=== PATIENT | female | born 1955 | race Asian ===

== ENCOUNTER 2023-12-06 10:51 | Outpatient (CLI) | payer MEDICARE, OTHER, SELFPAY ==
--- NOTE | ~2023-12-06 | DEXA_ITS ---
Bone Density Report Name: ZAN DODSON Age: 68 Sex: Female Ethnicity: White Date of : 1955 Indication: postmenopausal; screening for osteoporosis; Referring Provider: SONIDO ABRAMS Study: Bone densitometry was performed. Exam Date: December 06, 2023 Accession number: [id number] Bone Density: Region BMD T-score Z-score Classification AP Spine(L1-L4) 1.035 -0.1 1.7 Normal Femoral Neck (Left) 0.857 0.1 1.6 Normal Total Hip (Left) 1.047 0.9 2.1 Normal Femoral Neck (Right) 0.779 -0.6 0.9 Normal Total Hip (Right) 0.977 0.3 1.6 Normal Total Hip Mean 1.012 0.6 1.9 Normal World Health Organization criteria for BMD impression classify patients as: Normal (T-score at or above -1.0), Osteopenia (T-score between -1.0 and -2.5), or Osteoporosis (T-score at or below -2.5). 10-year Fracture Risk: FRAX not reported because: All T-scores for Spine Total, Hip Total, Femoral Neck at or above -1.0 Clinical Information Provided by Patient: Patient maximum height was 61 Drinks caffeinated beverages Onset of menses at age 16 Number of children 2 Impression: The patient has normal bone mass. Discussion: BONE DENSITY IS ABOVE THE MINIMUM DESIRABLE LEVEL AT ALL SKELETAL SITES TESTED. This patient?s bone mineral density is above the minimum desirable level (T-score -1.0 or better) at all sites measured. The patient should follow a healthful lifestyle (good nutrition with adequate calcium and vitamin D, and appropriate weight-bearing exercise). Follow-Up: Consider repeating this study in 5 years or sooner if there is some new clinical indication. Reported by: DAWOOD on 12/06/2023 11:16:00 AM. Reviewed, dictated and finalized at location ASean RODRIGUEZ
== END 2023-12-06 10:52 | disposition home or self-care (01) ==
PROVIDERS: PCP Emergency Medicine; Visit Provider Emergency Medicine
DX: Z78.0 Asymptomatic menopausal state (principal)
CPT/HCPCS: 77080

== ENCOUNTER 2023-12-08 09:01 | Day surgery (SDC) | payer MEDICARE, OTHER, SELFPAY ==
[2023-09-29 15:17] VITALS: BMI 24.1
[2023-11-25 11:56] VITALS: BMI 28.3
--- NOTE | 2023-12-06 16:37 | P.HP_ITS ---
History of Present Illness History of Present Illness Consent: Risks, benefits, and alternatives have been discussed and questions answered. Patient agrees to proceed with procedure. Chief complaint: Neoplasm Screening Narrative: Jewel Sears is a 68 year old female who is referred for colon cancer screening. Review of Systems Review of Systems: All systems reviewed & are unremarkable except as noted in HPI and below [facility] Social History Social History Smoking status: Never smoker Alcohol intake: current Alcohol use details: rarely Substance use: never Substance use type: does not use Current Housing: Decline to Answer Concerned About Future Housing: Decline to Answer Difficulty Paying Gas/Electric Bills: Decline to Answer Difficulty Paying for Meds: Decline to Answer Currently Unemployed: Decline to Answer Education: Decline to Answer Difficulty w/ Childcare or Family Care: Decline to Answer Living arrangements: with family Additional living arrangements comments: Additional occupation/education comments: self employed Gender identity (if verbalized by the patient): Female Sexual Orientation (if Verbalized by the Patient): Straight or Heterosexual Meds Home Medications and Allergies Home Medications Medication Instructions Recorded Confirmed Type estradiol 0.01% (0.1 mg/gram) 1 g vaginal .COMPLEX #42.5 grams 11/24/23 12/08/23 Rx vaginal cream Allergies Allergy/AdvReac Type Severity Reaction Status Date / Time No Known Allergies Allergy Unverified 12/08/23 10:40 Exam Resp: Auscultation: clear to auscultation bilaterally Cardio: Rate: regular rate Rhythm: regular rhythm GI: GI Palp: Yes Soft to palpation and No Tenderness to palpation present (GI) Assessment and Plan Assessment and plan (1) Colon cancer screening: Code(s): Z12.11 - Encounter for screening for malignant neoplasm of colon Status: Acute Assessment and Plan: Colonoscopy with possible biopsy or polypectomy or cautery or injection of substances.
[2023-12-08 10:41] VITALS: BP 116/79; PULSE 78; RESP 15; TEMP 36.8; O2SAT 98
[2023-12-08] MEDS: LACTATED RINGERS 1,000 ML 150 ML IV CONT (10:47)
--- NOTE | 2023-12-08 10:55 | P.PNAN_ITS ---
Anes - Initial Pre Proc Eval Procedure: Operation Date: 12/08/23 11:30 Proposed Procedures p Screening Colonoscopy - Liam Stevens MD Date/Time: 12/08/23 10:55 Surgeon: Liam Stevens MD Pre Op Diagnosis: Neoplasm Screening Patient Data Age: 68 Gender: F Height: 1.52 m Weight: 62.2 kg Last Vital Signs Temp 36.8 C 12/08/23 10:41 Pulse 78 12/08/23 10:41 Resp 15 12/08/23 10:41 BP 116/79 12/08/23 10:41 Pulse Ox 98 12/08/23 10:41 O2 Del Method Room Air 12/08/23 10:41 Allergies Allergy/AdvReac Type Severity Reaction Status Date / Time No Known Allergies Allergy Unverified 12/08/23 10:40 Home Medications Medication Instructions Recorded Confirmed Type estradiol 0.01% (0.1 mg/gram) 1 g vaginal .COMPLEX #42.5 grams 11/24/23 12/08/23 Rx vaginal cream Patient hx anesthesia problems: none Family hx anesthesia problems: none Results Review: All pre-operative results and documents have been reviewed as part of the pre- operative evaluation. [facility] Social History Social History Smoking status: Never smoker Alcohol intake: current Alcohol use details: rarely Substance use: never Substance use type: does not use Current Housing: Decline to Answer Concerned About Future Housing: Decline to Answer Difficulty Paying Gas/Electric Bills: Decline to Answer Difficulty Paying for Meds: Decline to Answer Currently Unemployed: Decline to Answer Education: Decline to Answer Difficulty w/ Childcare or Family Care: Decline to Answer Living arrangements: with family Additional living arrangements comments: Additional occupation/education comments: self employed Gender identity (if verbalized by the patient): Female Sexual Orientation (if Verbalized by the Patient): Straight or Heterosexual Anes - Eval Final PreProcedure Day of Procedure 12/08/23 10:55 Patient weight: normal Heart: regular rate and rhythm Lungs: clear to auscultation Airway: Mallampati scale class II Neurological: alert and oriented Last oral intake: >/= 8 hours ASA classification: I Emergent: no Anesthetic plan: proceed Anesthesia type and monitoring: general GIVS and standard monitoring Results Review: All pre-operative results and documents have been reviewed as part of the pre- operative evaluation. Informed Consent: The patient's anesthetic plan and its attendant risks and benefits were discussed with the patient/family/POA. Questions were solicited and answers provided to the satisfaction of the patient/family/POA.
[2023-12-08 11:21] VITALS: BP 107/51; PULSE 66; RESP 14; O2SAT 98
[2023-12-08 11:31] VITALS: BP 98/55; PULSE 62; RESP 16; O2SAT 98
[2023-12-08 11:41] VITALS: BP 98/65; PULSE 60; RESP 16; O2SAT 98
--- NOTE | 2023-12-08 11:47 | WPDANESPN ---
Anes - Prog Note Post-Op Date/Time: 12/08/23 11:47 Cardiovascular status: normal Respiratory status: normal Airway patency: baseline Mental status: baseline Post-Op hydration status: normal Vital Signs: Last Vital Signs Temp 36.8 C 12/08/23 10:41 Pulse 60 12/08/23 11:41 Resp 16 12/08/23 11:41 BP 98/65 L 12/08/23 11:41 Pulse Ox 98 12/08/23 11:41 O2 Del Method Room Air 12/08/23 11:41 Pain Score (VAS): 0/10 I/O: Intake & Output 12/07/23 12/08/23 12/08/23 23:59 07:59 15:59 Intake Total 300 Balance 300 Patient Feedback: Patient satisfied with anesthetic care.
== END 2023-12-08 11:55 | disposition home or self-care (01) ==
PROVIDERS: PCP Emergency Medicine; Visit Provider Internal Medicine Gastroenterology
PROC: 0DJD8ZZ Inspection of Lower Intestinal Tract, Via Natural or Artificial Opening Endoscopic (ICD-10-PCS; CPT 45378; principal; 2023-12-08 11:30)
DX: Z12.11 Encounter for screening for malignant neoplasm of colon (principal); K64.8 Other hemorrhoids
CPT/HCPCS: G0121

== ENCOUNTER 2024-11-08 14:44 | Outpatient (CLI) | payer MEDICARE, OTHER, SELFPAY ==
--- NOTE | ~2024-11-08 | MR_ITS ---
MRI of the right shoulder Technique: Axial proton-density fat-sat images, coronal proton density fat-sat and T2 fat-sat images, and sagittal T1-weighted and T2 fat-sat images were acquired. Clinical History: Pain Findings: There is mild AC joint degenerative change. Coracoclavicular, coracoacromial, coracohumeral ligaments are intact. There is a 0.6 x 0.9 cm area of full-thickness tear at the very anterior, distal supraspinatus tendon insertion. There is moderate supraspinatus tendinosis. Infraspinatus tendon is intact. Subscapularis tendon is intact. Tendon of the long head of the biceps is intact. No labral tear evident. There is mild thickening and increased signal inferior glenohumeral ligament. There are small glenohu meral joint effusion with fluid passing through the rotator cuff defect into the subacromial/subdelto id bursa. No muscle atrophy or edema. No degenerative change of the glenohumeral joint. Impression: 0.6 x 0.9 cm area of full-thickness tear at the anterior, distal supraspinatus tendon insertion. Mode rate supraspinatus tendinosis. Possible adhesive capsulitis. Small glenohumeral joint effusion. Mild AC joint degenerative change. Reviewed, dictated and finalized at [facility]. Impression: 0.6 x 0.9 cm area of full-thickness tear at the anterior, distal supraspinatus tendon insertion. Moderate supraspinatus tendinosis. Possible adhesive capsulitis. Small glenohumeral joint effusion. Mild AC joint degenerative change.
--- OUTSIDE RECORDS SUMMARY | 2024-11-08 14:56 | XMS_ITS | Clinical Summary ---
Author Organization [facility] Address [address] [place] [id number] Care Team Providers Care Grain Mill Products Inspector Name Role Phone Unavailable Primary Care Provider Unavailabl e Social History Tobacco Use Types Packs/Day Years Used Date Smoking Tobacco: Never Assessed Comments Unknown Sex and Gender Information Value Date Recorded Sex Assigned at Not on file Legal Sex Female 9:17 AM CRYSTAL INSPECTOR Gender Identity Not on file Sexual Orientation Not on file Last Filed Vital Signs Vital Sign Reading Time Taken Comments Blood Pressure 114/74 06/19/2017 2:15 PM CRYSTAL INSPECTOR Pulse 75 06/19/2017 2:15 PM CRYSTAL INSPECTOR Temperature - - Respiratory Rate - - Oxygen Saturation - - Inhaled Oxygen Concentration - - Weight 68 kg (150 lb) 06/19/2017 2:15 PM CRYSTAL INSPECTOR Height 147.3 cm (4' 10) 06/19/2017 2:15 PM CRYSTAL INSPECTOR Body Mass Index 31.35 06/19/2017 2:15 PM CRYSTAL INSPECTOR Plan of Treatment Health Maintenance Due Date Last Done Comments Colorectal Cancer Screening Colonoscopy (10 Years) 1955 Hepatitis C 11/30/1975 DTaP, Tdap and Td Vaccines ( 1 - Tdap) 1976 Mammogram Screening 1997 Pneumococcal Vaccine: 50+ Ye ars (1 of 1 - PCV) 11/30/2007 Zoster Vaccines (1 of 2) 11/30/2007 Dexa Scan (General) 2022 COVID-19 Vaccine ( - 2023-2 5 season) 2024 RSV Immunization or 60+ Years (1 - 1-dose 75+ series) 2032 Meningococcal B Vaccine Aged Out No l onger eligible based on patient's age to complete this topic Meningococcal Vaccine Aged Out No cait chi eligible based on patient's age to complete this topic RSV Immunizations Under 20 Months Aged Out No longer eligible based on patient's age to complete this topic Insurance
--- OUTSIDE RECORDS SUMMARY | 2024-11-08 14:56 | XMS_ITS | Continuity of Care Document ---
Author Organization [facility] Address [address] [place] [place] [address] [place] [address] Phone Care Team Providers Care Heavy Equipment Service Manager Name Role Phone Daryl Wiggins MD Unavailable Unavailable Allergies, Adverse Reactions, Alerts Substance Reaction Status Criticality No Known Allergies Active No Inform ation Procedures Procedure Date PPPS, initial visit OFFICE/OUTPATIENT VISIT, EST OFFICE/OUTPATIENT VISIT, EST Medicare Addendum Initial preventive exam OFFICE/OUTPATIENT VISIT, NEW OFFICE/OUTPATIENT VISIT, EST OFFICE/OUTPATIENT VISIT, EST OFFICE/OUTPATIENT VISIT, NEW Advance Directives Directive Yes / No Effective Date File Name No Information Encounters Encounter Description Practice Location Reason(s) For Visit Diagnoses Date Provider Providers Copied on Encounter OFFICE/OUTPA TIENT VISIT, EST [facility], [address] [place], [place], [id number], [place] tel:[phone] [facility] physical (chief complaint) Pain in right shoulderEncounter for general adult medical exam w abnormal findingsMixed hyperlipidemiaAbnor mal weight loss 5 Feliciano Brito. [address], [id number] , [place]. tel:[phone] OFFICE/OUTPA TIENT VISIT, [facility], [address] [place], [id number], [place] tel:[phone] [facility] Medicine hlp (chief complaint) low D (chief complaint) shoulder pain1 (chief complaint) weight loss1 (chief complaint) Pain in right shoulderPain in left hipAbnormal weight lossMixed hyperlipidemiaOther specified disorder of bone densityHemorrhoid 4 Feliciano Brito. [address], [place], [place], [id number] , [place]. tel:[phone] OFFICE/OUTPA TIENT VISIT, [facility], [address], [place], [place], [id number], [place] tel:[phone] [facility] physical (chief complaint) Encounter for general adult medical exam w abnormal findingsNeuropathy 4 Feliciano Brito. [address], [place], [place], [id number] , [place]. tel:[phone] OFFICE/OUTPA TIENT VISIT, [facility], [address], [place], [place], [id number], [place] tel:[phone] [facility] shingle1 (chief complaint) Zoster ocular disease 0 Feliciano Brito. [address], [place], [place], [id number] , [place]. tel:[phone] OFFICE/OUTPA TIENT VISIT, [facility], [address], [place], [place], [id number], [place] tel:[phone] [facility] shoulder pain1 (chief complaint) Pain in left shoulderBicipital tendinitis, left shoulder 0 Feliciano Brito. [address], [place], [place], [id number] , [place]. tel:[phone] OFFICE/OUTPA TIENT VISIT, [facility], [address], [place], [place], [id number], [place] tel:[phone] [facility] shoulder pain1 (chief complaint) Pain in left shoulderBicipital tendinitis, left shoulder 0 Feliciano Brito. [address], [place], [place], [address] , [place]. tel:[phone] Family History Family Member Type Diagnosis Age At Onset Brother Problem Alive and well Father Problem of old age Mother Problem of old age Payers Payer name Insurance type Covered democrat ID Cristal yu(s) [employer] [place] FILI [id number] [facility] [id number] Social History Type Description Quantity Date Captured Comments Alcohol Use Details Caffeine Use Details Unknown Tobacco Use Status Current non-smoker Smoking Status Never smoker Sex Female Vital Signs Date / Time: Height Weight BMI Pulse Rate Blood Pressure Temperature Respiratory Rate Body Surface Area Head Circumference BMI percentile Pulse Ox Inhaled Ox 5:24 PM 65.00 in 132.20 lbs 22.0 0 kg/m eter (2) 55 /min 110/68 mm[Hg] 98.3 F 16 /min Chief Complaint And Reason For Visit From encounter dated '10/11/2024 17:15'. physical (chief complaint). Description: Pt needs annual physical Pt chronic right shoulder pain,, worse with movement of the shoulder Pt denies any injury Pt had negative right shoulder x ray .Pt denies any radiculopathy. Pt denies any shoulder swelling, redness or warmth. Pt has mild HLP and low D. Pt continues to lose weight intentionally Plan Of Treatment Date Type Action Status Referral Ordered: MRI JOINT UPR EXTREM W/O DYE ordered Referral Ordered: SHOULDER XRAY 2+ VIEWS Right ordered Referral Ordered: AP PELVIS AND BILATERAL HIPS XRAY ordered Referral Ordered: DXA BONE DENSITY, AXIAL ordered Referral Ordered: COLONOSCOPY AND BIOPSY ordered Referral Ordered: MAMMOGRAM, SCREENING ordered Referral Ordered: Andres [facility] : Orthopaedic Surgery (related to Bicipital tendinitis, left shoulder) ordered Referral Referred To: Andres Yang [address] [place] [address] DR MENJIVAR B [address] [phone] Ordered: Referrals: [facility] : Orthopaedic Surgery. Andres Yang. Evaluate and treat ordered Referral Ordered: US EXAM, EXTREMITY ordered History Of Present Illness Encounter Date Complaint History Of Alireza nt Illness physical Pt needs annual physical Pt chronic right shoulder pain,, worse with movement of the shoulder Pt denies any injury Pt had negative right shoulder x ray .Pt denies any radiculopathy. Pt denies any shoulder swelling, redness or warmth. Pt has mild HLP and low D. Pt continues to lose weight intentionally hlp Pt has mild HLP. Pt is not on any diet weight loss1 Pt has lost some weight intentionally .Her initial weight was inaccurate due to COVID and virtual visit. She thinks that her baseline weight is around 145. Pt has been diet and exercising to try to lose more weight. Pt denies any nausea, vomiting, early satiety, loss of appetite, change of bowel, blood in stool, etc. shoulder pain1 Pt c/o chronic r ight shoulder pain and left hip pain for several years Pt denies any injury Pt works at restaurant for many years Pt denies any back pain or any sciatica. Pt does stand all day and constantly uses her arm to cook and move things. Pt denies any paresthesia or any weakness. Pt denies any joint redness, warmth or swelling. low D Pt has low D ,Pt had normal bone density. Pt denies any fracture physical Pt needs annual physical. Pt overall feels fine .Pt has not seen doctor for many years Pt needs well woman exam as well Pt states that sometimes she feels both hand numbness and tingling, sometimes worse at night for several months pt does work at restaurant for many years Pt denies any pain Pt denies any joint pain. Pt feels bilateral hand stiffness in the morning, getting better gradually throughout the day. Pt denies any other complaints shingle1 Pt was diagnosed with shingle right forehead since 7 days ago. Pt notices some right side scalp pain with itching. Pt then notices blisters and pain right side of forehead with eye lid swelling. Pt saw television producer and was referred to gearcase assembler last and she was started on valtrex 1 gm TID. She was given steroid eye drop as well. Pt states that she woke up last Friday and right eye swelled worse with pain without any vision change. Pt then went to urgent care last friday and she was given norco for pain only. Pt feels nauseated with norco. Pt then went to [facility] ER yesterday and she did see an gearcase assembler and was given erythromycin eye ointment. Pt notices redness around right eye with some photosensitivity. Pt denies any vision change. Pt states that right side headache and eyelid swelling and eye pain improved since yesterday but she is still concerned. shoulder pain1 Pt c/o persisten t left shoulder pain for 6 months PT denies any recent injury ,Pt denies any neck pain. Pt denies any radiculopathy or left arm numbness or tingling or weakness Pt failed chiropractice adjustment. Pt has daily 3/10 sharp pain, worse with movement. Ultrasound showed partial thickness tear of the tendon with tendinosis with AC hypertrophy with glenohumeral effusion. Pt denies any redness or warmth of the left shoulder shoulder pain1 Pt slipped on ic e around 6 months ago and she landed on her back and she jammed her left shoulder in the process. Pt c/o persistent left shoulder pain, especially when she tries to lift her shoulder. Pt denies any neck pain or any radiculopathy. Pt denies any left arm numbness or tingling or weakness .Pt denies any bruising or swelling . Pt has been getting acupuncture and some mild adjustment by chiropractor without improvement. Pt had normal x ray of left shoulder by chiropractor. She was given MRi of left shoulder order but insurance denied it. Pt has not been taking any medication for her shoulder pain. Pt c/o sharp pain Instructions Date Instruction Additional Infor mation No Information Assessments Type Assessment Date assessment Pain in right shoulder assessment Encounter for general adult medi asuncion exam w abnormal findings assessment Mixed hyperlipidemia assessment Abnormal weight loss Mental Status Date Cognitive Assessment Orientation - [place] ed to time, place, person, situation.
--- OUTSIDE RECORDS SUMMARY | 2024-11-08 14:56 | XMS_ITS | Clinical Summary ---
Author Organization [facility] Medical [facility] Address [address] [place] [address] Care Team Providers Care Research Hydrologist Name Role Phone Unavailable Primary Care Provider Unavailabl e Allergies No known active allergies Medications erythromycin (ILOTYCIN) ophthalmic ointment Apply to right eye nightly Apply to lesions around right eye 3 times daily 3.5 g 3 01/29/2020 Active Active Problems Problem Noted Date Diagnosed Date Retinal detachment of left eye with single break 10/31/2017 Assessment & Plan (10/31/2017 5:43 PM CDT): status post (s/p) pneumatic retinopexy left eye (OS) for superotemporal tear 5 weeks ago. Attached 360 . Macula flat. Good visual acuity (VA) -Monitor -Warning Sx new RT, retinal detachment (RD) discussed Medical History Medical History Date Comments Personal history of other sp ecified conditions History of urinary frequency - (Added by TW Conv) Hypertension Social History Tobacco Use Types Packs/Day Years Used Date Smoking Tobacco: Never Smokeless Tobacco: Never Alcohol Use Standard Drinks/Week Comments Yes 0 (1 standard drink = 0.6 oz pur e alcohol) Comments Unknown Sex and Gender Information Value Date Recorded Sex Assigned at Not on file Legal Sex Female 2:31 PM CDT Gender Identity Not on file Sexual Orientation Not on file Obstetrics History Last Filed Vital Signs Vital Sign Reading Time Taken Comments Blood Pressure 100/61 12/14/2019 3:48 PM CDT Pulse 67 12/14/2019 3:48 PM CDT Temperature 36.3 C (97.4 F) 12/14/2019 3:48 PM CDT Respiratory Rate - - Oxygen Saturation - - Inhaled Oxygen Concentration - - Weight 69.4 kg (153 lb) 12/14/2019 3:48 PM CDT Height 147.3 cm (4' 10) 12/14/2019 3:48 PM CDT Body Mass Index 31.98 12/14/2019 3:48 PM CDT Plan of Treatment Health Maintenance Due Date Last Done Comments Breast Cancer Screening-Mammogram 1955 Colon Cancer Screening-Colonoscopy 1955 Depression Screening 1955 Fall Risk Assessment 1955 Hepatitis C Screening 1955 Osteoporosis Screening-Bone Density Scan 1955 DTaP/Tdap/Td Vaccine (1 - Tdap) 1968 Hepatitis B Screening 11/30/1975 Pneumococcal vaccine 65+ (1 of 1 - PCV) 11/30/2007 Zoster Vaccine (1 of 2) 11/30/2007 Well Visit 65+ 2022 Influenza Vaccine (Season Ended) 2025 Insurance [place] MEDICARE [facility]
--- OUTSIDE RECORDS SUMMARY | 2024-11-08 14:56 | XMS_ITS | Referral Summary ---
Author Organization [facility] Medical [facility] Address [address] [place] [address] Care Team Providers Care Iron Installer Name Role Phone Unavailable Primary Care Provider [...] Sx new RT, retinal detachment (RD) discussed Social History Tobacco Use Types Packs/Day Years [...] 12/14/2019 3:48 PM CDT Plan of Treatment Not on file Insurance [place] MEDICARE [facility]
== END 2024-11-08 14:45 | disposition home or self-care (01) ==
PROVIDERS: PCP Emergency Medicine; Visit Provider Emergency Medicine
DX: M75.121 Complete rotator cuff tear or rupture of right shoulder, not specified as traumatic (principal); M25.411 Effusion, right shoulder; M19.011 Primary osteoarthritis, right shoulder; X58.XXXA Exposure to other specified factors, initial encounter
CPT/HCPCS: 73221

== ENCOUNTER 2025-01-03 13:31 | Outpatient (CLI) | payer MEDICARE, OTHER, SELFPAY ==
--- OUTSIDE RECORDS SUMMARY | 2024-11-29 12:51 | XMS_ITS | Continuity of Care Document ---
Author Organization [facility] Address [address] [place] [address] [place] [address] Phone Care Team Providers Care Fine Arts Teacher Name Role Phone Daryl Wiggins MD Unavailable Unavailable Allergies, Adverse Reactions, Alerts Substance Reaction Status Criticality No Known Allergies Active No Inform ation Procedures Procedure Date OFFICE/OUTPATIENT VISIT, EST Medicare Addendum PPPS, initial visit OFFICE/OUTPATIENT VISIT, EST OFFICE/OUTPATIENT VISIT, EST Medicare Addendum Initial preventive exam OFFICE/OUTPATIENT VISIT, NEW OFFICE/OUTPATIENT VISIT, EST OFFICE/OUTPATIENT VISIT, EST OFFICE/OUTPATIENT VISIT, NEW Advance Directives Directive Yes / No Effective Date File Name No Information Encounters Encounter Description Practice Location Reason(s) For Visit Diagnoses Date Provider Providers Copied on Encounter OFFICE/OUTPA TIENT VISIT, [facility] [place], [facility], [address] [place], [place], [address], tel:[phone] [facility] shoulder pain1 (chief complaint) back pain1 (chief complaint) Pain in right shoulderOther spondylosis, lumbar regionPain in left hip 5 Feliciano Brito. [address], [address] , [place]. tel:[phone] OFFICE/OUTPA TIENT VISIT, [facility], [place], [address] [place], [place], [address], [place] tel:[phone] [facility] physical (chief complaint) Pain in right shoulderEncounter for general adult medical exam w abnormal findingsMixed hyperlipidemiaAbnor mal weight loss 5 Feliciano Brito. [address], [place], [place], [address] , [place]. tel:[phone] OFFICE/OUTPA TIENT VISIT, [facility], [place], [address], [place], [place], [address], [place] tel:[phone] [facility] hlp (chief complaint) low D (chief complaint) shoulder pain1 (chief complaint) weight loss1 (chief complaint) Pain in right shoulderPain in left hipAbnormal weight lossMixed hyperlipidemiaOther specified disorder of bone densityHemorrhoid 4 Feliciano Garza [address], [place], [place], [address] , [place]. tel:[phone] OFFICE/OUTPA TIENT VISIT, [facility], [address], [place], [place], [address], [place] tel:[phone] [facility] physical (chief complaint) Encounter for general adult medical exam w abnormal findingsNeuropathy 4 Feliciano Garza [address], [place], [place], [address] , [place]. tel:[phone] OFFICE/OUTPA TIENT VISIT, [facility] [place], [address], [place], [place], [address], [place] tel:[phone] [facility] shingle1 (chief complaint) Zoster ocular disease 0 Feliciano Garza [address], [place], [place], [address] , [place]. tel:[phone] OFFICE/OUTPA TIENT VISIT, [facility] [place], [address], [place], [place], [address], [place] tel:[phone] [facility] shoulder pain1 (chief complaint) Pain in left shoulderBicipital tendinitis, left shoulder Nov- 0 Feliciano Brito. [address], [place], [place], [address] , [place]. tel:[phone] OFFICE/OUTPA TIENT VISIT, [facility], [address] [place], [place], [address], tel:[phone] [facility] shoulder pain1 (chief complaint) Pain in left shoulderBicipital tendinitis, left shoulder 0 Feliciano Brito. [address], [place], [place], [address] , [place]. tel:[phone] Family History Family Member Type Diagnosis Age At Onset Brother Problem Alive and well Father Problem of old age Mother Problem of old age Payers Payer name Insurance type Covered constitution party ID Authoriza tion(s) [employer] [place] WPS FILI [id number] [facility] [id number] Social History Type Description Quantity Date Captured Comments Alcohol Use Details Caffeine Use Details Unknown Tobacco Use Status Current non-smoker Smoking Status Never smoker Sex Female Vital Signs Date / Time: Height Weight BMI Pulse Rate Blood Pressure Temperature Respiratory Rate Body Surface Area Head Circumference BMI percentile Pulse Ox Inhaled Ox 5:51 PM 65.00 in 132.80 lbs 22.1 0 kg/m eter (2) 64 /min 100/60 mm[Hg] 97.8 F 16 /min Chief Complaint And Reason For Visit From encounter dated '2024 17:51'. shoulder pain1 (chief complaint). Description: Pt has chronic right shoulder pain Pt denies any injury Pt had MRI done which showed tear of rotator cuff muscle with adhesive capsulitis .Pt does have right shoulder stiffness with constant pain .Pt denies any radiculopathy. back pain1 (chief complaint). Description: Pt has chronic low back and left hip pain ,Pt notices mild sciatica of pain from L spine radiating to left hip area. Pt denies any loss of bowel or bladder control or saddle area paresthesia .Pt denies any injury. Plan Of Treatment Date Type Action Status Referral Ordered: Orthopedic Surgery (related to Pain in right shoulder) ordered Referral Ordered: MRI LUMBAR SPINE W/O DYE ordered Referral Ordered: Referrals: Orthopedic Surgery. Evaluate and treat ordered Referral Ordered: MRI JOINT UPR EXTREM W/O DYE ordered Referral Ordered: AP PELVIS AND BILATERAL HIPS XRAY ordered Referral Ordered: SHOULDER XRAY 2+ VIEWS Right ordered Referral Ordered: COLONOSCOPY AND BIOPSY ordered Referral Ordered: DXA BONE DENSITY, AXIAL ordered Referral Ordered: MAMMOGRAM, SCREENING ordered Referral Ordered: Andres Yang -[facility]opathic [facility] Osteopathic Physicians : Orthopaedic Surgery (related to Bicipital tendinitis, left shoulder) ordered Referral Referred To: Andres Yang [address] [place] [address] DR MENJIVAR B [address] [id number] Ordered: Referrals: Allopathic & Osteopathic Physicians : Orthopaedic Surgery. Andres Yang. Evaluate and treat ordered Referral Ordered: US EXAM, EXTREMITY ordered History Of Present Illness Encounter Date Complaint History Of Prese nt Illness back pain1 Pt has chronic l ow back and left hip pain ,Pt notices mild sciatica of pain from L spine radiating to left hip area. Pt denies any loss of bowel or bladder control or saddle area paresthesia .Pt denies any injury. shoulder pain1 Pt has chronic r ight shoulder pain Pt denies any injury Pt had MRI done which showed tear of rotator cuff muscle with adhesive capsulitis .Pt does have right shoulder stiffness with constant pain .Pt denies any radiculopathy. physical Pt needs annual physical Pt chronic right shoulder pain,, worse with movement of the shoulder Pt denies any injury Pt had negative right shoulder x ray .Pt denies any radiculopathy. Pt denies any shoulder swelling, redness or warmth. Pt has mild HLP and low D. Pt continues to lose weight intentionally weight loss1 Pt has lost some weight [...] normal bone density. Pt denies any fracture hlp Pt has mild HLP. Pt is not on any diet physical Pt needs annual physical. Pt overall [...] forehead with eye lid swelling. Pt saw superintendent drivers and was referred to cna ltc last and she was started on valtrex 1 gm TID. She was given steroid eye drop as well. Pt states that she woke up last Friday and right eye swelled worse with pain without any vision change. Pt then went to urgent care last friday and she was given norco for pain only. Pt feels nauseated with norco. Pt then went to [facility] ER yesterday and she did see an cna ltc and was given erythromycin eye ointment. Pt [...] sharp pain Instructions Date Instruction Additional Infor jose No Information Assessments Type Assessment Date assessment Pain in right shoulder assessment Other spondylosis, lumbar region assessment Pain in left hip Mental Status Date Cognitive Assessment Orientation - [place] ed to time, place, person, situation.
--- NOTE | ~2025-01-03 | MR_ITS ---
EXAMINATION: MR lumbar spine wo con DATE: 01/03/2025 14:16 INDICATION: Lumbar spondylosis TECHNIQUE: Magnetic resonance imaging (MRI) of the lumbar spine was performed without intravenous contrast. Sequences included sagittal T2-weighted FSE, sagittal T2-weighted FS FSE, sagittal T1-weighted FSE, and axial T2-weighted FSE. COMPARISON: None FINDINGS: 7 degrees lumbar dextrocurvature. 6 mm right lateral listhesis of L4 on L5. Sagittal alignment is normal. Vertebral body heights are normal. Severe disc height loss at L4-L5 with associated Modic type I fibrovascular degenerative endplate changes. Diffuse mild disc height loss at T11-T12, mild left-sided predominant disc height loss at L2-L3 and L3-L4 and mild right-sided prominent disc height loss at L5-S1. Annular fissure at L5-S1. Additional fibrovascular degenerative endplate changes anteriorly at L1-L2. The conus medullaris terminates at L2. There is normal signal in the caudal spinal cord. 1.3 cm low signal intensity gallstone at the neck of the gallbladder. Paravertebral soft tissues are unremarkable. The following disc levels are specifically discussed: T12-L1: The disc does not extend beyond the endplate margin. There is mild bilateral facet joint osteoarthritis. There is no neural foraminal stenosis. There is no central canal stenosis. L1-L2: The disc does not extend beyond the endplate margin. There is mild bilateral facet joint osteoarthritis. There is no neural foraminal stenosis. There is no central canal stenosis. L2-L3: Disc is bulging. There is mild bilateral facet joint osteoarthritis. There is mild right and mild to moderate left neural foraminal stenosis. There is mild central canal stenosis. L3-L4: Disc is bulging. There is mild to moderate left and moderate right facet joint osteoarthritis. There is mild bilateral neural foraminal stenosis. There is mild central canal stenosis. L4-L5: Disc is bulging. There is mild left and moderate right facet joint osteoarthritis. There is mild left and mild to moderate right neural foraminal stenosis. There is mild central canal stenosis. L5-S1: Disc is bulging. There is mild left and moderate right facet joint osteoarthritis. There is mild bilateral neural foraminal stenosis. There is minimal central canal stenosis. IMPRESSION: 1. Mild lumbar dextrocurvature with moderate to severe spondylosis at L4-L5 and otherwise mild. 2. Cholelithiasis. Reviewed, dictated and finalized at location A.
--- OUTSIDE RECORDS SUMMARY | 2025-01-03 13:39 | XMS_ITS | Clinical Summary ---
Author Organization [facility] Address [address] [facility] [place] [address] Care Team Providers Care Hot Air Furnace Installer Repairer Name Role Phone Unavailable Primary Care Provider Unavailabl e Allergies No known active allergies Medications erythromycin (ILOTYCIN) ophthalmic ointment Apply to right eye nightly Apply to lesions around right eye 3 times daily 3.5 g 3 0 Active Additional Information Patient not taking.Reported on 12/27/2024 meloxicam (MOBIC) 15 mg tabletIndicatio ns:Osteoarthrit is Take 1 tablet (15 mg total) by mouth daily Take with food 30 tablet 1 5 01/06/20 25 Active Additional Information Patient not taking.Reported on 12/27/2024 Active Problems Problem Noted Date Diagnosed Date Retinal detachment of left eye with single break 10/31/2017 Assessment & Plan (10/31/2017 5:43 PM CDT): status post (s/p) pneumatic retinopexy left eye (OS) for superotemporal tear 5 weeks ago. Attached 360 . Macula flat. 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 12/27/2024 Orders Only [facility] Sports Medicine and Primary Care at [address] [address] Oswaldo Borden DO Adhesive capsulitis of right shoulder (Primary Dx); 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 12/27/2024 Orders Only [facility] Sports Medicine and Primary Care at [address] [address] Oswaldo Borden DO 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 (Primary Dx); Adhesive capsulitis of right shoulder 12/06/2024 3:00 PM CDT Office Visit [facility] Orthopedic and Sports Medicine [address] [place] [phone] Tha Maldonado PA Adhesive capsulitis of right shoulder (Primary Dx); Nontraumatic complete tear of right rotator cuff 12/06/2024 2:10 PM CDT Ancillary Procedure [facility] Imaging at [address] [phone] Right shoulder pain, unspecified chronicity 12/06/2024 Orders Only [facility] Sports Medicine and Primary Care at [address] [phone] Provider, MD Edie from Last 3 Months Medical History Medical History Date Comments Personal history of other sp ecified conditions History of urinary frequency - (Added by TW Conv) Hypertension Social History Tobacco Use Types Packs/Day Years Used Date Smoking Tobacco: Never Smokeless Tobacco: Never Tobacco Cessation:Counseling Given: Not Answered Alcohol Use Standard Drinks/Week Comments Yes 0 (1 standard drink = 0.6 oz pur e alcohol) Comments Unknown Sex and Gender Information Value Date Recorded Sex Assigned at Not on file Legal Sex Female 2:31 PM CDT Gender Identity Not on file Sexual Orientation Not on file Obstetrics History Last Filed Vital Signs Vital Sign Reading Time Taken Comments Blood Pressure 124/78 12/27/2024 11:37 AM CDT Pulse 71 12/27/2024 11:37 AM CDT Temperature 36.3 C (97.4 F) 12/14/2019 3:48 PM CDT Respiratory Rate - - Oxygen Saturation - - Inhaled Oxygen Concentration - - Weight 60.1 kg (132 lb 6.4 oz) 12/27/2024 11:37 AM CDT Height 157.5 cm (5' 2) 12/27/2024 11:37 AM CDT Body Mass Index 24.22 12/27/2024 11:37 AM CDT Plan of Treatment Health Maintenance Due Date Last Done Comments Breast Cancer Screening-Mammogram 1955 Colon Cancer Screening-Colonoscopy 1955 Depression Screening 1955 Fall Risk Assessment 1955 Hepatitis C Screening 1957 Osteoporosis Screening-Bone Density Scan 1957 DTaP/Tdap/Td Vaccine (1 - Tdap) 1968 Hepatitis B Screening 11/30/1975 Pneumococcal vaccine 65+ (1 of 1 - PCV) 11/30/2007 Zoster Vaccine (2 of 2) 05/22/2021 03/27/2021 Well Visit 65+ 2022 Covid-19 Vaccine (3 - season) 2024, 11/04/2020 Influenza Vaccine (#1) 2025 Procedures Procedure Name Priority Date/Time Associated Diagnosis Comments MRI SHOULDER RIGHT WO CONTRAST Schedule Routine, Read Routine (OP Routine) 12/06/2024 2:37 PM CDT XR SHOULDER RIGHT 2 OR MORE VIEWS Schedule Routine, Read Routine (OP Routine) 12/06/2024 2:31 PM CDT Right shoulder pain, unspecified chronicity from Last 3 Months Results * MRI Shoulder Right WO Contrast (12/06/2024 2:37 PM CDT) Anatomical Region Laterality Modality Upper Extremities Right Magnetic Reson ance us Historical Provider MD HAGEN MRI PROCEDURES Final Result * XR Shoulder Right 2 or More Views (12/06/2024 2:31 PM CDT) Anatomical Region Laterality Modality Upper Extremities, Shoulder Right Digi zoraida Radiography Narrative 12/06/2024 2:36 PM CDT Four views of the right shoulder are negative for acute fracture dislocation or osseous lesion. Maintained glenohumeral joint space is noted. Moderate arthritic change noted the acromioclavicular joint. Type 1 acromion is noted. Notable subchondral cyst is seen at the greater tuberosity us Tha FONG IMG XR PROCEDURES Final Res ult from Last 3 Months Insurance [place] MED[place] [facility]
--- OUTSIDE RECORDS SUMMARY | 2025-01-03 13:39 | XMS_ITS | Clinical Summary ---
Author Organization [facility] Address [address] [place] [address] Care Team Providers Care Jewel Bearing Facer Name Role Phone Unavailable Primary Care Provider Unavailabl e Social History Tobacco Use Types Packs/Day Years Used Date Smoking Tobacco: Never Assessed Comments Unknown Sex and Gender Information Value Date Recorded Sex Assigned at Not on file Legal Sex Female 9:17 AM BUSINESS SERVICES ANALYST Gender Identity Not on file Sexual Orientation Not on file Last Filed Vital Signs Vital Sign Reading Time Taken Comments Blood Pressure 114/74 06/19/2017 2:15 PM BUSINESS SERVICES ANALYST Pulse 75 06/19/2017 2:15 PM BUSINESS SERVICES ANALYST Temperature - - Respiratory Rate - - Oxygen Saturation - - Inhaled Oxygen Concentration - - Weight 68 kg (150 lb) 06/19/2017 2:15 PM BUSINESS SERVICES ANALYST Height 147.3 cm (4' 10) 06/19/2017 2:15 PM BUSINESS SERVICES ANALYST Body Mass Index 31.35 06/19/2017 2:15 PM BUSINESS SERVICES ANALYST Plan of Treatment Health Maintenance Due Date [...]
== END 2025-01-03 13:32 | disposition home or self-care (01) ==
PROVIDERS: PCP Emergency Medicine; Visit Provider Emergency Medicine
DX: M47.896 Other spondylosis, lumbar region (principal); K80.20 Calculus of gallbladder without cholecystitis without obstruction
CPT/HCPCS: 72148

== ENCOUNTER 2025-01-24 13:50 | Outpatient (CLI) | payer MEDICARE, OTHER, SELFPAY ==
--- NOTE | ~2025-01-24 | MM_ITS ---
EXAMINATION: MM screening jose BI w matty HISTORY: Screening TECHNIQUE: Craniocaudal and mediolateral oblique 3-D tomosynthesis images were obtained and synthetic 2-D images were generated. CAD analysis was submitted and interpreted. COMPARISON: No prior mammogram is available for comparison at this institution. BREAST PARENCHYMAL COMPOSITION: The breasts are heterogeneously dense, which may obscure small masses. FINDINGS: There is no evidence of suspicious mass, calcification, or architectural distortion in either breast to suggest malignancy. There has been no significant interval change. IMPRESSION: 1. No mammographic evidence of malignancy. Recommend routine screening mammography in one year. BI-RADS Category 1: Negative Reviewed, dictated and finalized at location Q. IMPRESSION: 1. No mammographic evidence of malignancy. Recommend routine screening mammogra phy in one year. BI-RADS Category 1: Negative
--- OUTSIDE RECORDS SUMMARY | 2025-01-24 11:42 | XMS_ITS | Continuity of Care Document ---
Author Organization [facility] Address [address] [place] [address] [place] [address] Phone Care Team Providers Care Revenue Accountant Name Role Phone Daryl Wiggins MD Unavailable Unavailable Allergies, Adverse Reactions, Alerts Substance Reaction Status Criticality No Known Allergies Active No Inform ation Medications Medication Instructions Dosage Effective Dates (start - stop) Status Comments meloxicam 15 mg tablet take 1 tablet by oral route every day 15 MG - Active cyclobenzaprine 10 mg tablet take 1 tablet by oral route 2 times every day as needed 10 MG - Active PRN for pain , avoid driving or operate machines Procedures Procedure Date OFFICE/OUTPATIENT VISIT, EST Medicare Addendum PPPS, initial visit OFFICE/OUTPATIENT VISIT, EST OFFICE/OUTPATIENT VISIT, EST Medicare Addendum Initial preventive exam OFFICE/OUTPATIENT VISIT, NEW OFFICE/OUTPATIENT VISIT, EST OFFICE/OUTPATIENT VISIT, EST OFFICE/OUTPATIENT VISIT, NEW Advance Directives Directive Yes / No Effective Date File Name No Information Encounters Encounter Description Practice Location Reason(s) For Visit Diagnoses Date Provider Providers Copied on Encounter [facility], [address] [place], [place], [address], [place] tel:[phone] [facility] Other spondylosis, lumbar regionOther cholelithiasis w/o obstruction Feliciano Brito. [address] [place], [address] , [place]. tel:[phone] OFFICE/OUTPA TIENT VISIT, [facility], [address], [place], [place], [address], [place] tel:[phone] [facility] shoulder pain1 (chief complaint) back pain1 (chief complaint) Pain in right shoulderOther spondylosis, lumbar regionPain in left hip 5 Feliciano Brito. [address], [place], [place], [address] , [place]. tel:[phone] OFFICE/OUTPA TIENT VISIT, [facility], [address], [place], [place], [address], [place] tel:[phone] [facility] physical (chief complaint) Pain in right shoulderEncounter for general adult medical exam w abnormal findingsMixed hyperlipidemiaAbnor mal weight loss 5 Feliciano Brito. [address], [place], [place], [address] , [place]. [phone] OFFICE/OUTPA TIENT VISIT, [facility], [address], [place], [place], [address], [place] tel:[phone] [facility] hlp (chief complaint) low D (chief complaint) shoulder pain1 (chief complaint) weight loss1 (chief complaint) Pain in right shoulderPain in left hipAbnormal weight lossMixed hyperlipidemiaOther specified disorder of bone densityHemorrhoid 4 Feliciano Brito. [address], [place], [place], [address] , [place]. tel:[phone] OFFICE/OUTPA TIENT VISIT, [facility], [address], [place], [place], [address], [place] tel:[phone] [facility] physical (chief complaint) Encounter for general adult medical exam w abnormal findingsNeuropathy 4 Feliciano Brito. [address], [place], [place], [address] , [place]. tel:[phone] OFFICE/OUTPA TIENT VISIT, [facility], [address], [place], [place], [address], [place] tel:[phone] [facility] shingle1 (chief complaint) Zoster ocular disease 0 Feliciano Garza [address], [place], [place], [address] , . tel:[phone] OFFICE/OUTPA TIENT VISIT, [facility], [address], [place], [place], [address], [place] tel:[phone] [facility] shoulder pain1 (chief complaint) Pain in left shoulderBicipital tendinitis, left shoulder 0 Feliciano Brito. [address], [place], [place], [address] , [place]. tel:[phone] OFFICE/OUTPA TIENT VISIT, [facility], [address], [place], [place], [address], tel:[phone] [facility] shoulder pain1 (chief complaint) Pain in left shoulderBicipital tendinitis, left shoulder 0 Feliciano Brito. [address], [place], [address] , [place]. tel:[phone] Family History Family Member Type Diagnosis Age At Onset Brother Problem Alive and well Father Problem of old age Mother Problem of old age Payers Payer name Insurance type Covered constitution party ID Authorlanea gigi(s) [place] MB [id number] [facility] [place] [id number] Social History Type Description Quantity Date Captured Comments Alcohol Use Details Unknown Caffeine Use Details Unknown Tobacco Use Status No Information Smoking Status No Information Sex Female Vital Signs Date / Time: Height Weight BMI Pulse Rate Blood Pressure Temperature Respiratory Rate Body Surface Area Head Circumference BMI percentile Pulse Ox Inhaled Ox 4:45 PM 65.00 in 134.40 lbs 22.3 7 kg/m eter (2) 59 /min 110/62 mm[Hg] 97.5 F 16 /min Chief Complaint And Reason For Visit No Information Plan Of Treatment Date Type Action Status Referral Ordered: Physical Therapy (related to Other spondylosis, lumbar region) ordered Referral Referred To: Physical Therapy Ordered: Referrals: Physical Therapy. Evaluate and treat ordered Referral Ordered: Orthopedic Surgery (related to Pain in right shoulder) ordered Referral Ordered: Referrals: Orthopedic Surgery. Evaluate and treat ordered Referral Ordered: MRI LUMBAR SPINE W/O DYE ordered Referral Ordered: MRI JOINT UPR EXTREM [...] shoulder) ordered Referral Referred To: Andres Yang [address] [place] [address] DR MENJIVAR B [address] [phone] Ordered: Referrals: Allopathic & Osteopathic Physicians : Orthopaedic Surgery. Andres Yang. Evaluate and treat ordered Referral Ordered: US EXAM, EXTREMITY ordered Appointment Jewel Sears BOOKED History Of Present Illness Encounter Date Complaint [...] forehead with eye lid swelling. Pt saw laboratory technical specialist and was referred to change room attendant last and she was started on valtrex 1 gm TID. She was given steroid eye drop as well. Pt states that she woke up last Friday and right eye swelled worse with pain without any vision change. Pt then went to urgent care last friday and she was given norco for pain only. Pt feels nauseated with norco. Pt then went to [facility] ER yesterday and she did see an change room attendant and was given erythromycin eye ointment. Pt [...] No Information Assessments Type Assessment Date assessment Other spondylosis, lumbar region assessment Other cholelithiasis w/o obstruc tion
--- OUTSIDE RECORDS SUMMARY | 2025-01-24 16:29 | XMS_ITS | Clinical Summary ---
Author Organization 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 Gender Identity Not on file Sexual Orientation Not on file Last Filed Vital Signs Vital Sign Reading Time Taken Comments Blood Pressure 114/74 06/19/2017 2:15 PM MOBILE HOMES REPAIRER Pulse 75 06/19/2017 2:15 PM MOBILE HOMES REPAIRER Temperature - - Respiratory Rate - - Oxygen Saturation - - Inhaled Oxygen Concentration - - Weight 68 kg (150 lb) 06/19/2017 2:15 PM MOBILE HOMES REPAIRER Height 147.3 cm (4' 10) 06/19/2017 2:15 PM MOBILE HOMES REPAIRER Body Mass Index 31.35 06/19/2017 2:15 PM MOBILE HOMES REPAIRER Plan of Treatment Health Maintenance Due Date Last Done Comments Colorectal Cancer Screening Colonoscopy (10 Years) 1957 Hepatitis C 11/30/1975 DTaP, Tdap and Td Vaccines ( 1 - Tdap) 1976 Mammogram Screening 1997 Pneumococcal Vaccine: 50+ Ye ars (1 of 1 - PCV) 11/30/2007 Zoster Vaccines (1 of 2) 11/30/2007 Dexa Scan (General) 2022 COVID-19 Vaccine ( - 2023-2 5 season) 2025 RSV Immunization or 60+ Years (1 - [...]
== END 2025-01-24 13:51 | disposition home or self-care (01) ==
LOC: ANHFOHIMG 13:52
PROVIDERS: PCP Emergency Medicine; Visit Provider Emergency Medicine
DX: Z12.31 Encounter for screening mammogram for malignant neoplasm of breast (principal)
CPT/HCPCS: 77063; 77067